=== PATIENT | male | born 1980 ===

== ENCOUNTER 2024-08-30 20:36 | Emergency (ER) | payer OTHER ==
[~2024-08-30] VITALS: Ht 167.6 cm; Wt 79.0 kg
[2024-08-30 20:49] VITALS: BP 127/91
[2024-08-30] MEDS ORDERED: oxyCODONE 10MG/APAP 325 MG 1 COMBO TAB PO ONE (21:00)
[2024-08-30 21:01] VITALS: BP 129/90
[2024-08-30] MEDS ORDERED: ONDANSETRON HCl 4 MG/2 ML SDV IV ONE (21:10)
[2024-08-30] MEDS ORDERED: HYDROmorphone HCL 2 MG/AMP IV ONE ×2 (21:10→23:25)
[2024-08-30 21:16] VITALS: BP 131/73
[2024-08-30 22:01] VITALS: BP 117/68
[2024-08-30 22:42] LABS: BASO% 0.2 % (0-3); EOS% 0.1 % (0-8); HEMATOCRIT 43.3 % (39.0-50.0); HEMOGLOBIN 13.5 g/dl (14.0-18.0); IMMATURE GRANULOCYTES 0.1 % (0.0-5.0); LYMPH% 7.2 % (15-41); MEAN CELL VOLUME 90.4 fL CALC (80.0-100.0); MEAN CORPUSCULAR HGB 28.2 pG CALC (26.0-32.0); MEAN CORPUSCULAR HGB CONC 31.2 g/dL CAL (32.0-36.0); MONO% 4.2 % (2-13); NEUT# 13.48 thou/uL (1.82-7.42); NEUT% 88.2 % (42-76); RED BLOOD COUNT 4.79 mill/uL (4.70-6.10); RED CELL DISTRI WIDTH 12.6 % (11.5-15.5)
[2024-08-30 22:54] LABS: ALBUMIN 4.4 g/dL (3.2-5.0); BILIRUBIN, TOTAL 0.8 mg/dL (0.2-1.3); CREATININE 1.1 mg/dL (0.7-1.3); TOTAL PROTEIN 7.3 g/dL (6.3-8.2)
[2024-08-30 23:00] VITALS: BP 130/84
[2024-08-30 23:30] VITALS: BP 130/84
== END 2024-08-31 | DRG 999 ==
LOC: ED 20:36
PROVIDERS: Emergency Medicine
DX: S76.112A Strain of left quadriceps muscle, fascia and tendon, initial encounter (principal); S82.002A Unspecified fracture of left patella, initial encounter for closed fracture; S76.111A Strain of right quadriceps muscle, fascia and tendon, initial encounter; E78.5 Hyperlipidemia, unspecified; K21.9 Gastro-esophageal reflux disease without esophagitis; F65.4 Pedophilia; W18.30XA Fall on same level, unspecified, initial encounter; Y92.149 Unspecified place in prison as the place of occurrence of the external cause
CPT/HCPCS: J1171; J2405